=== PATIENT | female | born 1975 | race Caucasian/White ===

== ENCOUNTER 2017-05-26 08:18 | Day surgery (SDC) | payer OTHER ==
[~2017-05-26 08:18] MED LIST: Lactated Ringers 1,000 ML IV SCH; Lidocaine 2% 5 ML SDV ONE; Propofol 200 MG/20 ML SDV ONE; Sodium Chloride 0.9% 10 ML Syringe FLUSH PRN; Sodium Chloride 0.9% 2.5 ML Syringe FLUSH PRN; fentaNYL 100 MCG/2 ML SDV ONE
--- NOTE | 2017-05-26 08:55 | PCM.PREANE ---
Preanesthetic Assessment - Anesthesia/Transfusion/Family Hx Anesthesia History: Prior Anesthesia Without Reaction Other Type of Anesthesia Reaction Comment: states "dad had issues with his BP during surgery" Family History of Anesthesia Reaction: No Transfusion History: No Prior Transfusion(s) Intubation History: Unknown - Review of Systems General: No Symptoms Pulmonary: No Symptoms Cardiovascular: No Symptoms Gastrointestinal: Abdominal Pain Neurological: No Symptoms Other: Reports: None - Physical Assessment O2 Sat by Pulse Oximetry: 98 Respiratory Rate: 16 Vital Signs: Last Vital Signs Temp 36.2 C 05/26/17 08:25 Pulse 98 05/26/17 08:25 Resp 16 05/26/17 08:25 BP 131/79 05/26/17 08:25 Pulse Ox 98 05/26/17 08:25 Height: 1.57 m Weight: 76.204 kg ASA Class: 2 Mental Status: Alert & Oriented x3 Airway Class: Mallampati = 2 Dentition: Reports: Normal Dentition Thyro-Mental Finger Breadths: 3 Mouth Opening Finger Breadths: 3 ROM/Head Extension: Full Lungs: Clear to Auscultation, Normal Respiratory Effort Cardiovascular: Regular Rate, Regular Rhythm - Allergies Allergies/Adverse Reactions: Allergies Allergy/AdvReac Type Severity Reaction Status Date / Time No Known Allergies Allergy Verified 05/23/17 15:54 - Blood Blood Available: No - Anesthesia Plan Pre-Op Medication Ordered: None - Acknowledgements Anesthesia Type Planned: MAC Pt an Appropriate Candidate for the Planned Anesthesia: Yes Alternatives and Risks of Anesthesia Discussed w Pt/Guardian: Yes Pt/Guardian Understands and Agrees with Anesthesia Plan: Yes PreAnesthesia Questionnaire HEENT History: Reports: Other (See Below) Other HEENT History: wears glasses Respiratory History: Reports: Asthma Gastrointestinal History: Reports: GERD Other Gastrointestinal History: diverticulitis in january of last year Genitourinary History: Reports: None [employer] History: Reports: Musculoskeletal History: Reports: Back Pain, Chronic Neurological History: Reports: Migraines, Other (See Below) Other Neuro History: restless leg syndrome Endocrine/Metabolic History: Reports: Obesity/BMI 30+ Dermatologic History: Reports: Other (See Below) Other Dermatologic History: rosacea - Past Surgical History Head Surgeries/Procedures: Reports: None HEENT Surgical History: Reports: Tonsillectomy Female Surgical History: Reports: D&C Musculoskeletal Surgical History: Reports: Arthroscopic Knee - SUBSTANCE USE Smoking Status *Q: Former Smoker (quit smoking 19 years ago) Recreational Drug Use History: No - HOME MEDS Home Medications: Home Meds Albuterol [Proair HFA] 2 puff INH ASDIRECTED PRN 05/23/17 [History] Beclomethasone Dipropionate [Qvar 80 Mcg] 2 puff INH BID 05/23/17 [History] Hydrocodone/Acetaminophen [Hydrocodon-Acetaminophen 5-325] 1 oz PO BID PRN 05/23 [History] Mg Trisilicate/AlH/NahCO3/AA [Gaviscon 80-14.2 MG] 1 tab.chew CHEW ASDIRECTED PRN 05/23/17 [History] Mirabegron [Myrbetriq] 50 mg PO DAILY 05/23/17 [History] SUMAtriptan Succinate [Imitrex] 0.5 - 1 tab PO ASDIRECTED PRN 05/23/17 [History] metroNIDAZOLE [metroNIDAZOLE 0.75% Gel] 1 applic TOP ASDIRECTED 05/23/17 [ History] - CURRENT (IN HOUSE) MEDS Current Meds: Current Medications Lactated Ringer's (Ringers, Lactated) 1,000 mls @ 125 mls/hr IV ASDIRECTED EDILBERTO Last Admin: 05/26/17 08:32 Dose: 125 mls/hr Sodium Chloride (Saline Flush) 10 ml FLUSH ASDIRECTED PRN PRN Reason: Keep Vein Open Sodium Chloride (Saline Flush) 2.5 ml FLUSH ASDIRECTED PRN PRN Reason: Keep Vein Open Sodium Chloride (Saline Flush) 10 ml FLUSH ASDIRECTED PRN PRN Reason: Keep Vein Open Sodium Chloride (Saline Flush) 2.5 ml FLUSH ASDIRECTED PRN PRN Reason: Keep Vein Open Discontinued Medications Fentanyl (Sublimaze) Confirm Administered Dose 100 mcg .ROUTE .STK-MED ONE Stop: 05/26/17 08:17 Lidocaine (Xylocaine-Mpf 2%) Confirm Administered Dose 5 ml .ROUTE .STK-MED ONE Stop: 05/26/17 08:17 Propofol (Diprivan 20 Ml) Confirm Administered Dose 400 mg .ROUTE .STK-MED ONE Stop: 05/26/17 08:17
[2017-05-26] MEDS ORDERED: fentaNYL 100 MCG/2 ML SDV ONE (10:14)
--- NOTE | 2017-05-26 10:40 | PCM.OPNOTE ---
- General Post-Op/Procedure Note Date of Surgery/Procedure: 05/26/17 Operative Procedure(s): Colonoscopy Findings: Diverticulosis Pre Op Diagnosis: Diverticulosis Post-Op Diagnosis: same Anesthesia Technique: MAC Primary Surgeon: Micki Devi Condition: Good Free Text/Narrative:: Intake & Output 05/25/17 05/26/17 05/26/17 22:59 06:59 14:59 Intake Total 1000 Balance 1000
--- NOTE | 2017-05-26 13:55 | OR ---
SURGEON: LOPEZ SHAHID MD DATE OF PROCEDURE: 05/26/2017 PREOPERATIVE DIAGNOSIS: Diverticulosis. POSTOPERATIVE DIAGNOSIS: Diverticulosis. PROCEDURE PERFORMED: Diagnostic colonoscopy. ANESTHESIA: MAC. INSTRUMENT USED: Olympus colonoscope. EXTENT OF EXAM: To the cecum. PREPARATION: Good. LIMITATIONS: None. INDICATION FOR EXAMINATION: The patient is a 41-year-old female, who was recently diagnosed with diverticulitis. She is more than 2 months out from the infection and now presents for diagnostic colonoscopy. We discussed the procedure as well as expected perioperative course. We discussed the risks including bleeding, infection, or damage to surrounding structures including perforation. The patient verbalized understanding and wishes to proceed. PROCEDURE IN DETAIL: The patient was brought into the endoscopy suite and placed in the left lateral decubitus position. A time-out was completed verifying the patient's name, age, date of , allergies, and procedure to be performed. Monitored anesthesia care was induced. Continuous oxygen was provided via nasal cannula throughout the procedure. After adequate sedation was achieved, digital rectal exam was performed. This exam was within normal limits. A well lubricated colonoscope was inserted into the rectum and advanced under direct visualization to the level of the cecum. The cecum was identified by both visual and anatomic landmarks. A photograph was taken of the cecal cap; however, I was unable to retroflex the scope within the cecum. The scope was then fully withdrawn while examining the color, texture, anatomy, and integrity of the mucosa from the cecum to the anal canal. The patient was noted to have diverticulosis throughout the colon; however, she had a large amount of tics within the sigmoid colon. The scope was then brought into the rectum and retroflexed to allow visualization of the anal canal opening. This appeared normal and a photograph was taken. The scope was then straightened out and fully withdrawn. The cecum to anus time was 8 minutes. The patient tolerated the procedure well and was taken to PACU in stable condition. ENDOSCOPIC DIAGNOSIS: Diverticulosis. RECOMMENDATIONS: The patient and I had a lengthy discussion about diverticulosis preoperatively. The colonoscopy confirms that she has diverticulosis. The patient can follow up in clinic in 10 years or sooner if there are any issues or concerns. ASHLEY ANDERSON /[id number]
== END 2017-05-26 10:57 | disposition home or self-care (01) ==
LOC: MW.SDS 08:18
PROVIDERS: ATTEND Surgery
DX: K57.30 Diverticulosis of large intestine without perforation or abscess without bleeding (principal); J45.909 Unspecified asthma, uncomplicated; L98.9 Disorder of the skin and subcutaneous tissue, unspecified; J34.89 Other specified disorders of nose and nasal sinuses; G43.109 Migraine with aura, not intractable, without status migrainosus; G25.81 Restless legs syndrome; L71.9 Rosacea, unspecified; L73.8 Other specified follicular disorders; R35.0 Frequency of micturition; K21.9 Gastro-esophageal reflux disease without esophagitis; E66.9 Obesity, unspecified; Z68.30 Body mass index [BMI] 30.0-30.9, adult; Z91.041 Radiographic dye allergy status; Z79.899 Other long term (current) drug therapy; Z90.89 Acquired absence of other organs; Z87.891 Personal history of nicotine dependence
CPT/HCPCS: 45380; 81025; J3010; J7120; 00811; J2704